=== PATIENT | female | born 1955 | race Caucasian/White ===

== ENCOUNTER 2018-06-27 05:40 | Day surgery (SDC) | END 2018-06-27 16:08 | disposition home or self-care (01) ==

== ENCOUNTER 2018-08-04 06:04 | Day surgery (SDC) | payer OTHER ==
[~2018-08-04] VITALS: Ht 154.9 cm; Wt 58.2 kg
[~2018-08-04 06:04] MED LIST: OMEP40CA6 PO; PRAV10TA43 PO; RANI300T3 PO
[2018-08-04 07:01] VITALS: Ht 154.9 cm; Wt 58.2 kg
[2018-08-04 07:21] VITALS: BP 102/52; PULSE 80; RESP 14
[2018-08-04] MEDS ORDERED: MIDAZOLAM 1 MG/ML 2 ML INJ ONE ×3 (09:06→09:07)
[2018-08-04] MEDS ORDERED: FENTAnyl 50 MCG/ML VIAL ONE (09:07)
[2018-08-04 09:30] VITALS: BP 104/59; PULSE 82; RESP 21
== END 2018-08-04 12:32 | disposition home or self-care (01) ==
LOC: GIL 06:04
PROVIDERS: ATTEND Internal Medicine Gastroenterology
DX: R19.4 Change in bowel habit (principal); K64.8 Other hemorrhoids
CPT/HCPCS: 45378; J2250; J3010